=== PATIENT | female | born 1975 | race Caucasian/White ===

== ENCOUNTER 2021-08-28 13:10 | Emergency (ER) | payer BC | END 2021-08-28 14:56 | disposition home or self-care (01) | LOC: ER1 13:10 | DX: S60.012A Contusion of left thumb without damage to nail, initial encounter (principal); R06.4 Hyperventilation; I10 Essential (primary) hypertension; F17.290 Nicotine dependence, other tobacco product, uncomplicated; Z79.899 Other long term (current) drug therapy; W23.0XXA Caught, crushed, jammed, or pinched between moving objects, initial encounter; Y92.009 Unspecified place in unspecified non-institutional (private) residence as the place of occurrence of the external cause | CPT/HCPCS: 73140; 93005; 99283 ==